=== PATIENT | female | born 1985 ===

== ENCOUNTER 2023-07-07 10:47 | Observation (INO) ==
[2023-07-07] MEDS ORDERED: AMPICILLIN VIAL 2 GRAM ONE (10:53)
[2023-07-07] MEDS ORDERED: NS 100 ML IV 100 ML ONE (10:53)
[2023-07-07] MEDS ORDERED: D5 1/2 NS 1,000 ML 1,000 ML IV ONE (10:54)
[2023-07-07] MEDS ORDERED: MAGNESIUM SULFATE 40 GRAMS IV 40 G/1,000 ML BAG IV ONE (10:58)
[2023-07-07] MEDS ORDERED: MAGNESIUM SULFATE 40 GRAMS IV 40 G/1,000 ML BAG IV PRN (11:15)
[2023-07-07] MEDS ORDERED: CELESTONE SOLUSPAN IM ONE ×2 (11:25→11:28)
[2023-07-07 11:35] LABS: BASOPHILS # (AUTO) 0.1 X10^3/uL (0.0-0.1); BASOPHILS % (AUTO) 0.6 % (0.2-1.0); EOSINOPHILS % (AUTO) 0.2 % (0.9-2.9); HEMATOCRIT 34.5 % (36.0-47.0); HEMOGLOBIN 10.9 g/dL (12.0-16.0); LYMPHOCYTES % (AUTO) 35.7 % (21.0-51.0); MEAN CORPUSCULAR HEMOGLOBIN 24.3 pg (27.0-34.0); MEAN CORPUSCULAR HGB CONC 31.7 g/dL (33.0-35.0); MEAN CORPUSCULAR VOLUME 76.7 fL (80.0-100.0); MEAN PLATELET VOLUME 10.3 fL (7.4-11.0); MONOCYTES # (AUTO) 0.6 x10^3/uL (0.3-0.8); MONOCYTES % (AUTO) 5.5 % (0.0-13.0); NEUTROPHILS # (AUTO) 6.5 x10^3/uL (2.2-4.8); PLATELET COUNT 172 X10^3/uL (150.0-450.0); WHITE BLOOD COUNT 11.1 X10^3/uL (3.6-10.0)
[2023-07-07 11:39] LABS: INR 0.95 (0.8-1.3)
[2023-07-07 11:44] LABS: ALANINE AMINOTRANSFERASE 22 Units/L (12-78); ALBUMIN 2.2 g/dL (3.4-5.0); ALKALINE PHOSPHATASE 173 Units/L (46-116); ASPARTATE AMINO TRANSFERASE 28 Units/L (15-37); BLOOD UREA NITROGEN 18 mg/dL (7-18); CALCIUM 8.4 mg/dL (8.5-10.1); CARBON DIOXIDE 20.1 mmol/L (21-32); CHLORIDE 102 mmol/L (98-107); COR CA(FOR HYPOALB) 9.8 mg/dL (8.5-10.1); CREATININE 1.14 mg/dL (0.55-1.02); GLUCOSE 78 mg/dL (65-99); LACTATE DEHYDROGENASE 231 Units/L (81-234); POTASSIUM 4.2 mmol/L (3.5-5.1); SODIUM 134 mmol/L (136-145); TOTAL PROTEIN 6.4 g/dL (6.4-8.2); URIC ACID 7.5 mg/dL (2.6-6.0); eGFR NON BLACK RACES 58 (>60)
[2023-07-07] MEDS ORDERED: AMPICILLIN VIAL 2 GRAM 2 G in NS 100 ML IV 100 ML IV SCH (12:00)
[2023-07-07] MEDS ORDERED: D5 1/2 NS 1,000 ML 1,000 ML IV SCH (12:00)
[2023-07-07 12:06] VITALS: RESP 18; TEMP 98.1
[2023-07-07 12:18] VITALS: O2SAT 99
[2023-07-07 12:22] VITALS: BP 152/85
[2023-07-07 12:23] VITALS: PULSE 67
== END 2023-07-07 12:40 | disposition short-term general hospital (02) ==
LOC: LD 10:47 → INTOOBSV 10:47
PROVIDERS: ADMIT Specialist; ATTEND Specialist